=== PATIENT | female | born 1995 | race American Indian/Alaskan Native ===

== ENCOUNTER 2017-02-06 21:13 | Emergency (ER) | payer OTHER, BC ==
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
[2017-02-06 23:01] LABS: Basophils % (Auto) 0.7 % (0.0-1.8); Eosinophils % (Auto) 3.3 % (0.0-4.3); Hematocrit 37.9 % (30.3-42.9); Hemoglobin 11.8 gm/dl (10.1-14.3); Mean Corpuscular HGB Conc 31 % (30-34); Mean Corpuscular Volume 73 fl (79-97); Platelet Count 291 K/mm3 (140-440); Red Blood Count 5.18 M/mm3 (3.65-5.03); Red Cell Distribution Width 16.2 % (13.2-15.2); White Blood Count 9.3 K/mm3 (4.5-11.0)
[2017-02-06 23:02] LABS: Mean Corpuscular Hemoglobin 23 pg (28-32)
[2017-02-06 23:33] LABS: Alanine Aminotransferase 15 units/L (7-56); Albumin 4.3 g/dL (3.9-5); Albumin/Globulin Ratio 1.2 %; Alkaline Phosphatase 79 units/L (35-129); Anion Gap 17 mmol/L; BUN/Creatinine Ratio 17.77; Bilirubin,Total 0.3 mg/dL (0.1-1.2); Blood Urea Nitrogen 16 mg/dL (7-17); Calcium 9.2 mg/dL (8.4-10.2); Carbon Dioxide 23 mmol/L (22-30); Chloride 102.1 mmol/L (98-107); Glucose 94 mg/dL (65-100); Potassium 4.5 mmol/L (3.6-5.0); Sodium 138 mmol/L (137-145); Total Protein 7.8 g/dL (6.3-8.2)
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
[2017-02-07] MEDS ORDERED: TYLENOL PO ONE (07:46)
[2017-02-07] MEDS ORDERED: FLEXERIL PO ONE (07:46)
[2017-02-07] MEDS ORDERED: NACL ONE (08:19)
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
[2017-02-07 09:23] LABS: Creatine Kinase 223 units/L (30-135)
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
[2017-02-07 11:56] VITALS: BP 111/74
== END 2017-02-07 12:21 | disposition home or self-care (01) ==
LOC: ED 21:13
DX: S80.02XA Contusion of left knee, initial encounter (principal); S90.32XA Contusion of left foot, initial encounter; M79.1 Myalgia; M19.90 Unspecified osteoarthritis, unspecified site; F12.90 Cannabis use, unspecified, uncomplicated; V89.2XXA Person injured in unspecified motor-vehicle accident, traffic, initial encounter; Y93.89 Activity, other specified; Y99.9 Unspecified external cause status; Y92.410 Unspecified street and highway as the place of occurrence of the external cause
CPT/HCPCS: 36415; 70450; 71260; 72125; 73560; 73630; 74177; 80053; 82550; 84484; 84703; 85025; 93005; 93010; 99285; Q9967